=== PATIENT | female | born 1995 | race Two or more races ===

== ENCOUNTER 2017-11-17 06:20 | Emergency (ER) | payer OTHER ==
[~2017-11-17] VITALS: Ht 167.6 cm; Wt 54.4 kg
[2017-11-17 06:22] VITALS: BP 114/81
--- NOTE | 2017-11-17 06:28 | NUR ---
[id number] ACCOMPANIED BY [employer]. PER RA "PT PASSED OUT DURING BOOKING PROCESS" PT STATES "I WAS JUST SLEEPING". PT IS AAOX4. RESP EVEN AND UNLABORED. NO S/S OF ACUTE DISTRESS NOTED. VSS. [employer] BEDSIDE WITH PT. PT PLACED ON MONITOR AND POX. PT AMBULATED WITH STEADY GAIT NOTED. AWAITING MD FOR EVAL.
--- NOTE | 2017-11-17 06:30 | NUR ---
BEDSIDE FOR EVAL
--- NOTE | 2017-11-17 06:47 | NUR ---
Patient discharged to [facility] in custody in stable condition. Written and verbal after care instructions given. Patient verbalizes understanding of instruction. VSS upon discharge. Pt walked out by [employer]. Steadt gait noted while pt walked out of ER.
== END 2017-11-17 06:50 ==
LOC: ER 06:22
DX: R55 Syncope and collapse (principal); Z60.2 Problems related to living alone
CPT/HCPCS: A4606; Z7610